=== PATIENT | male | born 1935 | race Native Hawaiian/Other Pacific Islander ===

== ENCOUNTER 2020-07-01 13:52 | Inpatient (IN) | payer OTHER ==
[~2020-07-01] VITALS: Ht 177.8 cm; Wt 87.2 kg
[2020-07-01 15:00] VITALS: BP 173/75; TEMP 98.6; Ht 177.8 cm; Wt 87.2 kg
[2020-07-01 20:35] VITALS: BP 157/93; TEMP 98.2
[2020-07-02 20:11] VITALS: BP 156/92; TEMP 97.8
[2020-07-03 00:27] VITALS: BP 114/70; TEMP 98
[2020-07-03 20:16] VITALS: BP 139/88; TEMP 97.9
[2020-07-04 08:00] VITALS: BP 137/42; TEMP 97.9
[2020-07-04 20:00] VITALS: BP 144/78; TEMP 98
[2020-07-05 08:00] VITALS: BP 156/90; TEMP 97.7
[2020-07-05 21:26] VITALS: BP 118/71; TEMP 98.4
[2020-07-06 08:00] VITALS: BP 151/66; TEMP 98.4
[2020-07-06 20:00] VITALS: BP 139/76; TEMP 98.2
[2020-07-07 07:59] VITALS: BP 147/88; TEMP 98
[2020-07-07 19:47] VITALS: BP 197/98; TEMP 97.9
[2020-07-08 08:00] VITALS: BP 144/86; TEMP 98.5
[2020-07-08 20:08] VITALS: BP 163/93; TEMP 98.1
[2020-07-09 08:00] VITALS: BP 116/63; TEMP 97.9
[2020-07-09 20:17] VITALS: BP 138/75; TEMP 98.3
[2020-07-10 08:00] VITALS: BP 124/82; TEMP 98.4
[2020-07-10] MEDS ORDERED: CITALOPRAM10 M1 PO ×2 (10:16→10:42)
[2020-07-10] MEDS ORDERED: TAMSULOSIN0.4 MG PO ×2 (10:17→10:45)
[2020-07-10] MEDS ORDERED: DIGOX125 MCG PO ×2 (10:17→10:43)
[2020-07-10] MEDS ORDERED: MIRALAX17 GM PO ×2 (10:17→10:45)
[2020-07-10] MEDS ORDERED: ELIQUIS5 MG PO ×2 (10:19→10:42)
[2020-07-10] MEDS ORDERED: DONE5TAB PO ×2 (10:19→10:43)
[2020-07-10] MEDS ORDERED: LOVA20TA PO ×2 (10:20→10:43)
[2020-07-10] MEDS ORDERED: PANTOPRAZOLE 40MG TA PO ×2 (10:21→10:44)
[2020-07-10] MEDS ORDERED: NITR0.4S2 SL ×2 (10:22→10:44)
[2020-07-10] MEDS ORDERED: BLOOMIS59 PO (10:46)
== END 2020-07-10 11:01 | disposition home health service (06) | DRG 312 ==
LOC: SWING 13:52 → EDBD 14:05 → MED/SURG 14:05
PROVIDERS: ADMIT Internal Medicine Endocrinology, Diabetes & Metabolism; ATTEND Internal Medicine Endocrinology, Diabetes & Metabolism
DX: R55 Syncope and collapse (principal); E87.1 Hypo-osmolality and hyponatremia; R53.81 Other malaise; I48.91 Unspecified atrial fibrillation; I25.10 Atherosclerotic heart disease of native coronary artery without angina pectoris; Z95.5 Presence of coronary angioplasty implant and graft; R48.8 Other symbolic dysfunctions; M62.81 Muscle weakness (generalized); R26.81 Unsteadiness on feet; Z74.1 Need for assistance with personal care; N40.0 Benign prostatic hyperplasia without lower urinary tract symptoms; F03.90 Unspecified dementia, unspecified severity, without behavioral disturbance, psychotic disturbance, mood disturbance, and anxiety; G62.9 Polyneuropathy, unspecified; D64.9 Anemia, unspecified; I10 Essential (primary) hypertension; K21.9 Gastro-esophageal reflux disease without esophagitis; Z91.81 History of falling; E78.5 Hyperlipidemia, unspecified; F32.9 Major depressive disorder, single episode, unspecified; G93.89 Other specified disorders of brain
CPT/HCPCS: 87081; 87635; J2405; U0003